=== PATIENT | female | born 1980 | race Caucasian/White ===

== ENCOUNTER 2016-12-14 22:39 | Emergency (ER) | payer OTHER ==
--- NOTE | ~2016-12-14 | CR282 ---
[facility] A Service of [facility] & [facility] RADIOLOGY TEXT RESULTS PATIENT: MOI DANIELS LOCATION: SED : 82 UNIT #: [id number] AGE: [address]: FIDEL VANN SEX: F ORDER DR: [id number] [place] [address] [id number] E MR#: [id number] Acc #: [id number] NAME: MOI DANIELS : 1980 SEX: F STUDY DATE/TIME: 12/14/2016 22:53 UNIT: SED ROOM: STUDY DESCRIPTION: CR Wrist Min 3 View Rt Attending Physician: Fidel Vann Aprn Ordering Physician: Physician Non-Staff Primary Care Physician: Primary Care Physician No MEDICAL IMAGING REPORT This report is preliminary unless electronic signature is present. EXAM Right wrist series INDICATIONS Right wrist pain since September 2016. PROCEDURE 3 views of the right wrist. COMPARISON None FINDINGS No acute fracture or dislocation. IMPRESSION No acute findings. Dictated by... Austin Major M.D. THIS IS AN ELECTRONICALLY VERIFIED REPORT Austin Major M.D. at 12/19/2016 7:30 AM EED/psc TD: 12/15/2016 01:48 JOB #: [id number] MEDICAL IMAGING REPORT Page 1 of 1
--- NOTE | ~2016-12-14 | CR91 ---
[facility] A Service [facility] RADIOLOGY TEXT RESULTS PATIENT: MOI DANIELS LOCATION: SED : 82 UNIT #: [id number] AGE: [address]: FIDEL VANN SEX: F ORDER DR: [id number] [place] [id number] E MR#: [id number] Acc #: [id number] NAME: MOI DANIELS : 1980 SEX: F STUDY DATE/TIME: 12/14/2016 22:53 UNIT: SED ROOM: STUDY DESCRIPTION: CR Elbow 2 View Rt Attending Physician: Fidel Vann Aprn Ordering Physician: Physician Non-Staff Primary Care Physician: Primary Care Physician No MEDICAL IMAGING REPORT This report is preliminary unless electronic signature is present. EXAM Right elbow series. INDICATION Right elbow pain. Previous right elbow injury September 2016 with persistent pain. PROCEDURE 3 views of the right elbow. COMPARISON None. FINDINGS No acute fracture or dislocation. IMPRESSION No acute findings. Dictated by... Austin Major M.D. THIS IS AN ELECTRONICALLY VERIFIED REPORT Austin Major M.D. at 12/19/2016 7:30 AM ARTUROD/kelsea TD: 12/15/2016 01:46 JOB #: [id number] [facility] A Service [facility] RADIOLOGY TEXT RESULTS PATIENT: MOI DANIELS LOCATION: SED : 82 UNIT #: [id number] AGE: [address]: FIDEL VANN SEX: F ORDER DR: MEDICAL IMAGING REPORT Page 1 of 1
--- NOTE | ~2016-12-14 | CR142 ---
[facility] A Service of [facility] RADIOLOGY TEXT RESULTS PATIENT: MOI DANIELS LOCATION: SED : 82 UNIT #: [id number] AGE: [address]: FIDEL VANN SEX: F ORDER DR: [id number] [place] [address] [id number] E MR#: [id number] Acc #: [id number] NAME: MOI DANIELS : 1980 SEX: F STUDY DATE/TIME: 12/14/2016 22:59 UNIT: SED ROOM: STUDY DESCRIPTION: CR Hand Min 3 Views Rt Attending Physician: Fidel Vann Aprn Ordering Physician: Physician Non-Staff Primary Care Physician: Primary Care Physician No MEDICAL IMAGING REPORT This report is preliminary unless electronic signature is present. EXAM Right hand series. INDICATION Right hand pain since September 2016. PROCEDURE 3 views right hand. COMPARISON None. FINDINGS No acute fracture or dislocation. IMPRESSION No acute findings. Dictated by... Austin Major M.D. THIS IS AN ELECTRONICALLY VERIFIED REPORT Austin Major M.D. at 12/19/2016 7:30 AM AFSHIN/kelsea TD: 12/15/2016 01:48 JOB #: [id number] MEDICAL IMAGING REPORT [facility] A Service of [facility] RADIOLOGY TEXT RESULTS PATIENT: MOI DANIELS LOCATION: SED : 82 UNIT #: [id number] AGE: [address]: FIDEL VANN SEX: F ORDER DR: Page 1 of 1
--- NOTE | ~2016-12-14 | CR133 ---
[facility]. [facility] A Service of [facility] & [facility] RADIOLOGY TEXT RESULTS PATIENT: MOI DANIELS LOCATION: SED : 82 UNIT #: [id number] AGE: [address]: FIDEL VANN SEX: F ORDER DR: [id number] [place] [address] [id number] E MR#: [id number] Acc #: [id number] NAME: MOI DANIELS : 1980 SEX: F STUDY DATE/TIME: 12/14/2016 22:53 UNIT: SED ROOM: STUDY DESCRIPTION: CR Forearm 2 View Rt Attending Physician: Fidel Vann Aprn Ordering Physician: Physician Non-Staff Primary Care Physician: Primary Care Physician No MEDICAL IMAGING REPORT This report is preliminary unless electronic signature is present. EXAM Right forearm series INDICATIONS Right forearm pain since September 2016. PROCEDURE 2 views of the right forearm. COMPARISON None. FINDINGS No acute fracture or dislocation. IMPRESSION No acute findings. Dictated by... Austin Major M.D. THIS IS AN ELECTRONICALLY VERIFIED REPORT Austin Major M.D. at 12/19/2016 7:30 AM EED/kezia TD: 12/15/2016 01:46 JOB #: [id number] MEDICAL IMAGING REPORT Page 1 of 1
[~2016-12-14 22:39] MED LIST: ADDERALL; ADDERALL20 MG PO; AUGMENTIN PO; BENZONATATE200 M1 PO; CELEXA20 MG PO; DESYREL100 MG PO; DIAZEPAM PO; KLONOPIN1 MG PO; LORTAB 5/500 TA1 TA2 PO; PHENERGAN25 MG PO; SELFEMRA20 MG PO; SOMA PO; TYLOX 5-500 CA1 EACH PO; ZOFRAN PO
== END 2016-12-15 00:39 | disposition home or self-care (01) ==
LOC: SED 22:39
DX: M77.9 Enthesopathy, unspecified (principal); K50.90 Crohn's disease, unspecified, without complications; F41.9 Anxiety disorder, unspecified; Z91.040 Latex allergy status; Z88.5 Allergy status to narcotic agent; Z88.8 Allergy status to other drugs, medicaments and biological substances
CPT/HCPCS: 29125; 73070; 73090; 73110; 73130; 96372; 99284; J1885